=== PATIENT | female | born 1960 | race Caucasian/White ===

== ENCOUNTER 2017-06-11 12:30 | Emergency (ER) | payer SELFPAY ==
[~2017-06-11] VITALS: Ht 151.1 cm; Wt 83.5 kg
[2017-06-11 12:41] VITALS: BP 162/77; PULSE 71; RESP 16; TEMP 98.2; O2SAT 97
[2017-06-11] MEDS ORDERED: CALC3OIN TOPICAL (13:45)
[2017-06-11] MEDS ORDERED: TOPI0.255 TOPICAL (13:45)
--- NOTE | 2017-06-11 13:53 | PD ---
HPI Chief Complaint: Skin Problem Time Seen by Provider: 13:40 Travel History International Travel<30 days: No Contact w/Intl Traveler<30days: No Traveled to known affect area: No History of Present Illness HPI This patient complains of some vague malaise. She is concerned about her psoriasis rash flaring. She recently moved to [place] and is out of her medications. She's hypothyroid and off thyroid medication for 2 months. 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 She is going to have health insurance July 27. Severity is moderate PFSH Past Medical History ?: Not Social History Alcohol Use: No Tobacco Use: No Substance Use: No Allergies-Medications (Allergen,Severity, Reaction): Coded Allergies: prednisone (Verified Allergy, Unknown, "prednisone inflamation", 06/11/17) Reported Meds & Prescriptions Reported Meds & Active Scripts Active Topicort Topical (Desoximetasone) 0.25% Cream 1 Applic TOPICAL BID Calcitriol Topical 3 Mcg/Gm Oint 1 Applic TOPICAL BID Review of Systems General / Constitutional: No: Fever HENT: No: Headaches Cardiovascular: No: Chest Pain or Discomfort Respiratory: No: Shortness of Breath Physical Exam Narrative GENERAL: Well-nourished, well-developed patient in no apparent distress. SKIN: Focused skin assessment reveals erythematous rash with silver scale plaques consistent with psoriasis and a variety areas including scalp and left side of upper chest and extremities . Skin is Warm and dry. HEAD: Atraumatic. Normocephalic. EYES: Pupils equal and round. No scleral icterus. No injection or drainage. ENT: No nasal bleeding or discharge. Mucous membranes pink and moist. NECK: Trachea midline. No JVD. CARDIOVASCULAR: Regular rate and rhythm. No murmur appreciated. RESPIRATORY: No accessory muscle use. Clear to auscultation. Breath sounds equal bilaterally. GASTROINTESTINAL: Abdomen soft, non-tender, nondistended. Hepatic and splenic margins not palpable. MUSCULOSKELETAL: No obvious deformities. No clubbing. No cyanosis. No edema. NEUROLOGICAL: Awake and alert. No obvious cranial nerve deficits. Motor grossly within normal limits. Normal speech. PSYCHIATRIC: Appropriate mood and affect; insight and judgment normal. Data Data Last Documented VS Vital Signs Date Time Temp Pulse Resp B/P (MAP) Pulse Ox O2 Delivery O2 Flow Rate FiO2 06/11/17 12:41 98.2 71 16 162/77 [phone]) 03 [facility] Medical Decision Making Medical Screen Exam Complete: Yes Emergency Medical Condition: Yes Medical Record Reviewed: Yes Differential Diagnosis Psoriasis, depression, hypothyroidism Narrative Course I have reviewed the patient's electronic medical record. I refilled her thyroid medication for 2 months We discussed psoriasis approaches. I prescribed her accommodation of Topicort and calcitriol. We discussed her listed prednisone allergy. It doesn't sound like she is truly allergic to prednisone. She will closely watch her reaction to that and stop if needed Diagnosis Primary Impression: Psoriasis Additional Impressions: Hypothyroidism Qualified Codes: E03.9 - Hypothyroidism, unspecified Malaise Additional Instructions: The patient was advised to follow up with their physician and return if they worsen. Med/Other Pt SpecificInfo: Prescription(s) given Scripts Desoximetasone Topical (Topicort Topical) 0.25% Cream 1 APPLIC TOPICAL BID, #60 GM 0 Refills Prov: Estiven Valdes MD 06/11/17 Calcitriol Topical (Calcitriol Topical) 3 Mcg/Gm Oint 1 APPLIC TOPICAL BID for Psoriasis, #100 GM 0 Refills Prov: Estiven Valdes MD 06/11/17 Disposition: 01 DISCHARGE HOME Condition: Stable Estiven Valdes MD Jun 11, 2017 13:53
[2017-06-11] MEDS ORDERED: LEVO.05 PO (13:54)
== END 2017-06-11 14:04 | disposition home or self-care (01) ==
LOC: PHED 12:30 → PHEFT 14:04
DX: L40.9 Psoriasis, unspecified (principal); E03.9 Hypothyroidism, unspecified; R53.81 Other malaise
CPT/HCPCS: 96372; 99283